=== PATIENT | female | born 1965 | race Caucasian/White ===

== ENCOUNTER 2017-07-07 10:11 | Emergency (ER) | payer MEDICAID ==
[~2017-07-07] VITALS: Ht 154.9 cm; Wt 84.4 kg
[~2017-07-07 10:11] MED LIST: COZ50 PO; FAMO-90 PO; METF850T PO; MIC5 PO; PRAV20TA2 PO; SAXA5TAB PO; SULF1TAB12 PO; [UNRECOGNIZED DRUG - CODE] TP; [UNRECOGNIZED DRUG - OTHER] INH
[2017-07-07 10:20] VITALS: BP 153/98
--- NOTE | 2017-07-07 10:24 | NUR ---
PT W/C ASSISTED TO BED 11.
--- NOTE | 2017-07-07 10:25 | NUR ---
52/F BIB DAUGHTER C/O right knee pain s/p trip and fall last night; pt states she fell on the sidewalk and now cannot walk with swelling to right knee.hx DM, HTN.DENIES LOC. SKIN IS PINK/WARM/DRY; AAOX4 WITH EVEN AND STEADY GAIT; LUNGS CLEAR. BLPATIENT STATES PAIN OF 10/10 AT THIS TIME. PATIENT POSITIONED FOR COMFORT; HOB ELEVATED; BEDRAILS UP X2; BED DOWN. ER MD MADE AWARE OF PT STATUS.
--- NOTE | 2017-07-07 10:49 | NUR ---
X RAY AT BEDSIDE.
--- NOTE | 2017-07-07 10:59 | NUR ---
Patient being evaluated by DR CARIAS at bedside.
--- NOTE | 2017-07-07 11:18 | NUR ---
Crutches dispensed. Taught by emt tamar proper use, patient returned demo.
[2017-07-07 11:22] VITALS: BP 158/90
--- NOTE | 2017-07-07 11:23 | NUR ---
Patient discharged with bp 158/90; denies scruggs at this time; md made aware. Written and verbal after care instructions given and explained. Patient alert, oriented and verbalized understanding of instructions. CRUTCHES Assisted with unsteady gait. All questions addressed prior to discharge. ID band removed. Patient advised to follow up with PMD. Rx of given. Patient educated on indication of medication including possible reaction and side effects. Opportunity to ask questions provided and answered.
== END 2017-07-07 11:23 | disposition home or self-care (01) ==
LOC: MED 10:11
DX: M25.561 Pain in right knee (principal); J45.909 Unspecified asthma, uncomplicated; E11.9 Type 2 diabetes mellitus without complications; I10 Essential (primary) hypertension; F17.210 Nicotine dependence, cigarettes, uncomplicated; Z88.6 Allergy status to analgesic agent; W01.0XXA Fall on same level from slipping, tripping and stumbling without subsequent striking against object, initial encounter; Y93.89 Activity, other specified; Y92.89 Other specified places as the place of occurrence of the external cause; Y99.8 Other external cause status
CPT/HCPCS: 29505; 73562; 99284

== ENCOUNTER 2018-09-02 21:04 | Emergency (ER) | payer MEDICAID ==
[~2018-09-02] VITALS: Ht 154.9 cm; Wt 83.5 kg
[2018-09-02 22:01] VITALS: BP 179/83
--- NOTE | 2018-09-02 22:09 | NUR ---
PT AMBULATED TO ROOM 2. PROVIDED URINE.
[2018-09-02] MEDS ORDERED: ASPI81EC98 PO (22:12)
[2018-09-02] MEDS ORDERED: CLON0.1T42 PO (22:13)
[2018-09-02] MEDS ORDERED: FURO-570 PO (22:13)
--- NOTE | 2018-09-02 22:25 | NUR ---
53/F PRESENTS TO ED WITH FAMILY, C/O 12/24 INTERMITTENT NONRADIATING UPPER ABD PAIN, X2 DAYS, EXACERBATED BY DRINKING COLD FLUIDS AND EATING FOOD. PT DENIES FEVER, CP, SOB, N/V/D, CONSTIPATION OR DYSURIA. AOX4, GCS 15, SKIN NORMAL WARM AND DRY, RR EVEN AND UNLABORED. BS ACTIVE X4, ABD SOFT ROUND TENDER TO UPPER QUADRANTS, DENIES LOWER QUADRANT TENDERNESS. HX DM, HTN, HLD
[2018-09-02 22:29] LABS: APPEARANCE,URINE CLEAR (CLEAR); BILIRUBIN,URINE NEGATIVE (NEGATIVE); BLOOD, URINE 1+ (NEGATIVE); COLOR,URINE YELLOW (YELLOW); LEUKOCYTE ESTERASE ,URINE NEGATIVE (NEGATIVE); NITRITE, URINE NEGATIVE (NEGATIVE); UGLUCOSE 3+ (NEGATIVE)
[2018-09-02 22:30] LABS: BASOPHILS # (AUTO) 0.1 K/uL (0.00-0.22); BASOPHILS % (AUTO) 0.7 % (0.0-2.0); EOSINOPHILS # (AUTO) 0.1 K/uL (0-0.4); EOSINOPHILS % (AUTO) 1.1 % (0.0-4.0); HEMATOCRIT 43.5 % (36-48); HEMOGLOBIN 14.7 g/dL (12.0-16.0); LYMPHOCYTES # (AUTO) 3.2 K/uL (2.5-16.5); LYMPHOCYTES % (AUTO) 33.8 % (20.5-51.1); MEAN CORPUSCULAR HEMOGLOBIN 30 pg (27-31); MEAN CORPUSCULAR HGB CONC 34 g/dL (33-37); MEAN CORPUSCULAR VOLUME 89.3 fL (80-94); MONOCYTES # (AUTO) 0.8 K/uL (0.8-1.0); NEUTROPHILS # (AUTO) 5.4 K/uL (1.8-7.7); NEUTROPHILS % (AUTO) 56.4 % (42.2-75.2); PLATELET COUNT (AUTO) 272 K/uL (140-450); RED BLOOD CELL COUNT(AUTO) 4.87 MIL/uL (4.20-5.40); RED CELL DISTRIBUTION WIDTH 14.4 % (11.6-13.7); WBC,URINE 0-5 /HPF (0-5); WHITE BLOOD COUNT (AUTO) 9.5 K/uL (4.8-10.8)
[2018-09-02 22:39] LABS: CARBON DIOXIDE 28.3 mmol/L (21-32); POTASSIUM 4.3 mmol/L (3.5-5.1)
[2018-09-02] MEDS ORDERED: PANTOPRAZOLE 40 MG INJ VIAL IVP ONE (22:40)
[2018-09-02] MEDS ORDERED: NACL 0.9% 1,000 ML IV ONE (22:40)
[2018-09-02 22:46] LABS: ALBUMIN 3.8 g/dL (3.4-5.0); TOTAL BILIRUBIN 0.4 mg/dL (0.0-1.0)
[2018-09-02] MEDS ORDERED: INSULIN REGULAR, HUMAN 100 UNIT/ML VIAL IVP ONE (23:20)
[2018-09-02] MEDS ORDERED: MORPHINE SULFATE 2 MG/ML SYR IVP ONE (23:20)
--- NOTE | 2018-09-03 00:21 | NUR ---
DR PAIGE MADE AWARE OF ACCUCHECK 283 AND VS, BP 169/95, HR 77, PT ASYMPTOMATIC AT THIS TIME. REPORTS RELIEF IN ABD PAIN. PER DR PAIGE, PT IS OK FOR DISCHARGE.
[2018-09-03 00:22] VITALS: BP 169/95
--- NOTE | 2018-09-03 00:22 | NUR ---
DPatient discharged with v/s stable. Written and verbal after care instructions given and explained. Patient alert, oriented and verbalized understanding of instructions. Ambulatory with steady gait. All questions addressed prior to discharge. ID band removed. Patient advised to follow up with PMD. Rx of PROTONIX, TRAMADOL given. Patient educated on indication of medication including possible reaction and side effects. Opportunity to ask questions provided and answered.
== END 2018-09-03 00:21 | disposition home or self-care (01) ==
LOC: MED 21:04
DX: K29.70 Gastritis, unspecified, without bleeding (principal); J45.909 Unspecified asthma, uncomplicated; E11.9 Type 2 diabetes mellitus without complications; I10 Essential (primary) hypertension; F17.210 Nicotine dependence, cigarettes, uncomplicated; Z71.6 Tobacco abuse counseling; Z79.84 Long term (current) use of oral hypoglycemic drugs; Z79.82 Long term (current) use of aspirin; Z79.899 Other long term (current) drug therapy; Z88.8 Allergy status to other drugs, medicaments and biological substances; Z88.1 Allergy status to other antibiotic agents
CPT/HCPCS: 36415; 80053; 81001; 82948; 83690; 85025; 87086; 93005; 96361; 96374; 96375; 99284; C9113; J1815; J7030

== ENCOUNTER 2019-02-08 15:43 | Emergency (ER) | payer MEDICAID ==
[~2019-02-08] VITALS: Ht 157.5 cm; Wt 75.3 kg
[~2019-02-08 15:43] MED LIST changes: +ASPI81EC98 PO; +CLON0.1T42 PO; -COZ50 PO; +FURO-570 PO; +LOSA50TA57 PO; -SAXA5TAB PO; -SULF1TAB12 PO; -[UNRECOGNIZED DRUG - CODE] TP
[2019-02-08 15:55] VITALS: BP 122/72
--- NOTE | 2019-02-08 16:17 | NUR ---
PT TAKEN TO BED 3.
--- NOTE | 2019-02-08 16:30 | NUR ---
PT. WENT TO X-RAY
--- NOTE | 2019-02-08 16:40 | NUR ---
53/F BIBS. CAME IN COMPLAINING OF LEFT KNEE PAIN. SHE STATED SHE FELL AT HOME ON 02/08/2019 AT 0900. AOX4, PAIN IS 7/10, NON RADIATING, SHE STATES "KNEE FEELS HEAVY, AND TENDER WHEN I TOUCH IT". CAP REFILL IS <3 SECS, NO DEFORMITY, ABLE TO EXTEND AND FLEX LEG, NO BRUISING NOTED, SWELLING IS PRESENT, PEDAL PULSES +2. GRANDSON IS AT BEDSIDE PMHX: ASTHMA, DIABETES, HTN RX: METFOMIN, INSULIN, GLYBURIDE
[2019-02-08 17:38] VITALS: BP 120/74
--- NOTE | 2019-02-08 17:41 | NUR ---
Patient discharged with v/s stable. Written and verbal after care instructions given and explained. Patient alert, oriented and verbalized understanding of instructions. Ambulatory with crutches with steady gait. All questions addressed prior to discharge. ID band removed. Patient advised to follow up with PMD. Rx of TYLENOL given. Patient educated on indication of medication including possible reaction and side effects. Opportunity to ask questions provided and answered.
== END 2019-02-08 17:41 | disposition home or self-care (01) ==
LOC: MED 15:43
DX: S80.02XA Contusion of left knee, initial encounter (principal); J45.909 Unspecified asthma, uncomplicated; E11.9 Type 2 diabetes mellitus without complications; I10 Essential (primary) hypertension; Z79.84 Long term (current) use of oral hypoglycemic drugs; Z79.82 Long term (current) use of aspirin; Z79.899 Other long term (current) drug therapy; Z88.8 Allergy status to other drugs, medicaments and biological substances; Z88.1 Allergy status to other antibiotic agents; W01.0XXA Fall on same level from slipping, tripping and stumbling without subsequent striking against object, initial encounter; Y93.01 Activity, walking, marching and hiking; Y92.098 Other place in other non-institutional residence as the place of occurrence of the external cause; Y99.8 Other external cause status
CPT/HCPCS: 29505; 73560; 99283

== ENCOUNTER 2019-07-22 17:48 | Emergency (ER) | payer MEDICAID ==
[~2019-07-22] VITALS: Ht 162.6 cm; Wt 69.9 kg
[2019-07-22 17:52] VITALS: BP 140/83
[2019-07-22] MEDS ORDERED: NACL 0.9% 1,000 ML IV ONE ×2 (18:05→19:30)
[2019-07-22 18:28] LABS: BASOPHILS # (AUTO) 0.1 K/uL (0.00-0.22); BASOPHILS % (AUTO) 0.8 % (0.0-2.0); EOSINOPHILS # (AUTO) 0.1 K/uL (0-0.4); EOSINOPHILS % (AUTO) 1.5 % (0.0-4.0); HEMATOCRIT 44.7 % (36-48); HEMOGLOBIN 15.1 g/dL (12.0-16.0); LYMPHOCYTES # (AUTO) 2.8 K/uL (2.5-16.5); LYMPHOCYTES % (AUTO) 37.8 % (20.5-51.1); MEAN CORPUSCULAR HEMOGLOBIN 31 pg (27-31); MEAN CORPUSCULAR HGB CONC 34 g/dL (33-37); MEAN CORPUSCULAR VOLUME 90.7 fL (80-94); MONOCYTES # (AUTO) 0.6 K/uL (0.8-1.0); MONOCYTES % (AUTO) 7.8 % (1.7-9.3); NEUTROPHILS # (AUTO) 3.9 K/uL (1.8-7.7); NEUTROPHILS % (AUTO) 52.1 % (42.2-75.2); PLATELET COUNT (AUTO) 242 K/uL (140-450); RED BLOOD CELL COUNT(AUTO) 4.93 MIL/uL (4.20-5.40); RED CELL DISTRIBUTION WIDTH 13.6 % (11.6-13.7); WHITE BLOOD COUNT (AUTO) 7.5 K/uL (4.8-10.8)
[2019-07-22 18:40] LABS: APPEARANCE,URINE HAZY (CLEAR); BILIRUBIN,URINE NEGATIVE (NEGATIVE); BLOOD, URINE NEGATIVE (NEGATIVE); COLOR,URINE YELLOW (YELLOW); LEUKOCYTE ESTERASE ,URINE TRACE (NEGATIVE); NITRITE, URINE NEGATIVE (NEGATIVE); PH,URINE 5.5 (5.0-9.0); UGLUCOSE 3+ (NEGATIVE)
[2019-07-22 18:43] LABS: ACETONE, SERUM NEGATIVE (NEGATIVE)
[2019-07-22 18:48] LABS: ALBUMIN 3.8 g/dL (3.4-5.0); ASPARTATE AMINOTRANSFERASE 11 U/L (15-37); CARBON DIOXIDE 25.3 mmol/L (21-32); CHLORIDE 94 mmol/L (98-107); CREATININE 1.7 mg/dL (0.6-1.3); GFR ARICAN-AMERICAN 40 mL/min (>90); POTASSIUM 4.3 mmol/L (3.5-5.1); SODIUM SERUM 130 mmol/L (136-145); TOTAL BILIRUBIN 0.4 mg/dL (0.0-1.0); UREA NITROGEN, BLOOD 21 mg/dL (7-18)
[2019-07-22 18:53] LABS: GLUCOSE 499 mg/dL (74-106)
[2019-07-22 18:58] LABS: RBC,URINE NONE SEEN /HPF (0-5)
[2019-07-22] MEDS ORDERED: INSULIN REGULAR, HUMAN 100 UNIT/ML VIAL IV ONE (19:30)
[2019-07-22 20:52] VITALS: BP 136/82
== END 2019-07-22 20:53 | disposition home or self-care (01) ==
LOC: MED 17:48
DX: N39.0 Urinary tract infection, site not specified (principal); E11.65 Type 2 diabetes mellitus with hyperglycemia; J45.909 Unspecified asthma, uncomplicated; I10 Essential (primary) hypertension; Z79.84 Long term (current) use of oral hypoglycemic drugs; Z79.82 Long term (current) use of aspirin; Z79.899 Other long term (current) drug therapy; Z88.1 Allergy status to other antibiotic agents; Z88.8 Allergy status to other drugs, medicaments and biological substances
CPT/HCPCS: 36415; 71045; 80053; 81001; 82009; 82803; 82948; 85025; 87086; 96361; 96374; 99284; J1815; J7030

== ENCOUNTER 2019-08-01 21:39 | Emergency (ER) | payer MEDICAID ==
[~2019-08-01] VITALS: Ht 157.5 cm; Wt 69.9 kg
[2019-08-01 21:49] VITALS: BP 107/67
--- NOTE | 2019-08-01 21:56 | NUR ---
PT AMBULATED TO ER BED 07
[2019-08-01] MEDS ORDERED: FAMOTIDINE 20 MG/2 ML VIAL IVP ONE (22:00)
[2019-08-01] MEDS ORDERED: ONDANSETRON 4 MG/2 ML VIAL IVP ONE (22:00)
[2019-08-01] MEDS ORDERED: NACL 0.9% 2,000 ML IV ONE (22:00)
--- NOTE | 2019-08-01 22:00 | NUR ---
54 YEAR OLD FEMALE COMPLAINS OF HIGH BLOOD SUGAR FOR THE PAST WEEK. THE PATIENT STATES THAT SHE HAS BEEN TAKING ANTIBIOTICS UNTIL SUNDAY AND HAS BEEN UNABLE TO EAT FOOD BECAUSE OF ABDOMINAL DISCOMFORT. PATIENT AOX4, BREATHING EVEN AND UNLABORED, SKIN WARM AND DRY. BED IN LOWEST POSITION, LOCKED, BED RAIL UPX1. PMH - DM2, HTN, HYPERLIPIDEMIA ALLERGIES - IBUPROFEN, LEVOFLOXACIN
--- NOTE | 2019-08-01 22:05 | NUR ---
BLOOD SUGAR 400, ERMD MADE AWARE
[2019-08-01 22:22] LABS: BASOPHILS # (AUTO) 0.1 K/uL (0.00-0.22); BASOPHILS % (AUTO) 0.7 % (0.0-2.0); EOSINOPHILS # (AUTO) 0.2 K/uL (0-0.4); EOSINOPHILS % (AUTO) 2.3 % (0.0-4.0); HEMATOCRIT 39.1 % (36-48); HEMOGLOBIN 13.1 g/dL (12.0-16.0); LYMPHOCYTES # (AUTO) 3.2 K/uL (2.5-16.5); LYMPHOCYTES % (AUTO) 37.5 % (20.5-51.1); MEAN CORPUSCULAR HEMOGLOBIN 31 pg (27-31); MEAN CORPUSCULAR HGB CONC 34 g/dL (33-37); MEAN CORPUSCULAR VOLUME 90.9 fL (80-94); MONOCYTES # (AUTO) 0.5 K/uL (0.8-1.0); NEUTROPHILS # (AUTO) 4.5 K/uL (1.8-7.7); NEUTROPHILS % (AUTO) 53.5 % (42.2-75.2); PLATELET COUNT (AUTO) 228 K/uL (140-450); RED CELL DISTRIBUTION WIDTH 13.4 % (11.6-13.7); WHITE BLOOD COUNT (AUTO) 8.5 K/uL (4.8-10.8)
[2019-08-01 22:31] LABS: APPEARANCE,URINE CLEAR (CLEAR); BILIRUBIN,URINE 1+ (NEGATIVE); BLOOD, URINE TRACE-I (NEGATIVE); COLOR,URINE YELLOW (YELLOW); LEUKOCYTE ESTERASE ,URINE 2+ (NEGATIVE); NITRITE, URINE NEGATIVE (NEGATIVE); UGLUCOSE 3+ (NEGATIVE)
[2019-08-01 22:47] LABS: ALBUMIN 3.3 g/dL (3.4-5.0); CARBON DIOXIDE 27.4 mmol/L (21-32); CREATININE 1.6 mg/dL (0.6-1.3); POTASSIUM 3.4 mmol/L (3.5-5.1); TOTAL BILIRUBIN 0.2 mg/dL (0.0-1.0)
[2019-08-01 22:48] LABS: WBC,URINE 60-80 /HPF (0-5)
[2019-08-01 22:50] LABS: TRICHOMONAS,URINE Moderate /HPF (None Seen)
--- NOTE | 2019-08-01 22:59 | NUR ---
LAB CALLED FOR PT CRITICAL RESULT OF [id number]. ERMD DR MONTANO MADE AWARE. PT GIVEN EXTRA BLANKET FOR COMFORT.
--- NOTE | 2019-08-01 23:00 | NUR ---
PATIENT RESTING WITH EYES CLOSED, BREATHING EVEN AND UNLABORED
[2019-08-01] MEDS ORDERED: INSULIN REGULAR, HUMAN 100 UNIT/ML VIAL SUBQ ONE (23:15)
--- NOTE | 2019-08-02 | NUR ---
PATIENT RESTING WITH EYES CLOSED, BREATHING EVEN AND UNLABORED
[2019-08-02 01:15] VITALS: BP 116/64
--- NOTE | 2019-08-02 01:15 | NUR ---
Patient discharged with v/s stable. Written and verbal after care instructions about hyperglycemia and urinary tract infection given and explained. Patient alert, oriented and verbalized understanding of instructions. Ambulatory with steady gait. All questions addressed prior to discharge. ID band removed. Patient advised to follow up with PMD. Rx of Keflex given. Patient educated on indication of medication including possible reaction and side effects. Opportunity to ask questions provided and answered.
== END 2019-08-02 01:15 | disposition home or self-care (01) ==
LOC: MED 21:39
DX: N39.0 Urinary tract infection, site not specified (principal); R73.9 Hyperglycemia, unspecified; R10.13 Epigastric pain; J45.909 Unspecified asthma, uncomplicated; E11.9 Type 2 diabetes mellitus without complications; I10 Essential (primary) hypertension; Z88.6 Allergy status to analgesic agent; Z88.2 Allergy status to sulfonamides; Z79.899 Other long term (current) drug therapy
CPT/HCPCS: 36415; 80053; 81001; 83690; 85025; 87086; 96361; 96372; 96374; 96375; 99284; J1815; J2405; J3490; J7030

== ENCOUNTER 2019-11-07 19:49 | Emergency (ER) | payer MEDICAID ==
[~2019-11-07] VITALS: Ht 157.5 cm; Wt 78.9 kg
[2019-11-07 20:11] VITALS: BP 119/75
[2019-11-07 20:34] VITALS: BP 119/75
== END 2019-11-07 20:34 | disposition home or self-care (01) ==
LOC: MED 19:49
DX: E11.9 Type 2 diabetes mellitus without complications (principal); J45.909 Unspecified asthma, uncomplicated; I10 Essential (primary) hypertension; F17.210 Nicotine dependence, cigarettes, uncomplicated; Z88.6 Allergy status to analgesic agent; Z88.1 Allergy status to other antibiotic agents; Z79.899 Other long term (current) drug therapy; Z79.84 Long term (current) use of oral hypoglycemic drugs
CPT/HCPCS: 99281; 99282

== ENCOUNTER 2022-07-03 08:01 | Inpatient (IN) | payer MEDICAID ==
[~2022-07-03] VITALS: Ht 157.5 cm; Wt 59.0 kg
[~2022-07-03 08:01] MED LIST changes: +CLON0.1T16 PO; -CLON0.1T42 PO; +GLYB-200 PO; +METF-713 PO; -METF850T PO; -MIC5 PO
[2022-07-03 08:12] VITALS: BP 146/79
--- NOTE | 2022-07-03 08:14 | NUR ---
PT AMBULATED TO ER BED 5
[2022-07-03] MEDS ORDERED: NACL 0.9% 1,000 ML IV ONE (08:30)
--- NOTE | 2022-07-03 09:00 | NUR ---
AWAKE, ALERT X 4, AMBULATORY, VERY CONVERSANT ON PHONE, PLEASANT TO STAFF. C/O GENERALIZED WEAKNESS, DENIES ANY GI SYMPTOMS.
[2022-07-03 09:25] LABS: APPEARANCE,URINE CLEAR (CLEAR); BILIRUBIN,URINE NEGATIVE (NEGATIVE); BLOOD, URINE TRACE-I (NEGATIVE); COLOR,URINE YELLOW (YELLOW); LEUKOCYTE ESTERASE ,URINE 1+ (NEGATIVE); NITRITE, URINE NEGATIVE (NEGATIVE); UGLUCOSE 3+ (NEGATIVE)
[2022-07-03 09:29] LABS: BASOPHILS % (AUTO) 0.5 % (0.0-2.0); EOSINOPHILS % (AUTO) 0.1 % (0.0-4.0); HEMATOCRIT 38.3 % (36-48); HEMOGLOBIN 12.7 g/dL (12.0-16.0); LYMPHOCYTES # (AUTO) 1.9 K/uL (2.5-16.5); LYMPHOCYTES % (AUTO) 18.7 % (20.5-51.1); MEAN CORPUSCULAR HEMOGLOBIN 29 pg (27-31); MEAN CORPUSCULAR HGB CONC 33 g/dL (33-37); MEAN CORPUSCULAR VOLUME 88.3 fL (80-94); MONOCYTES # (AUTO) 0.6 K/uL (0.8-1.0); MONOCYTES % (AUTO) 6.1 % (1.7-9.3); NEUTROPHILS # (AUTO) 7.6 K/uL (1.8-7.7); NEUTROPHILS % (AUTO) 74.6 % (42.2-75.2); PLATELET COUNT (AUTO) 354 K/uL (140-450); RED BLOOD CELL COUNT(AUTO) 4.34 MIL/uL (4.20-5.40); RED CELL DISTRIBUTION WIDTH 15.2 % (11.6-13.7); WHITE BLOOD COUNT (AUTO) 10.2 K/uL (4.8-10.8)
[2022-07-03] MEDS: NACL 0.9% 1,000 ML IV SCH ×2 (09:37→10:49)
[2022-07-03 09:40] LABS: ACETONE, SERUM NEGATIVE (NEGATIVE)
[2022-07-03] MEDS ORDERED: NYSTATIN 500 MU/5 ML UDC PO SCH (09:40)
[2022-07-03 09:51] LABS: ALBUMIN 3.8 g/dL (3.4-5.0); ANION GAP 18.7 (8-16); ASPARTATE AMINOTRANSFERASE 8 U/L (15-37); CARBON DIOXIDE 21.4 mmol/L (21-32); CHLORIDE 95 mmol/L (98-107); CREATININE 1.7 mg/dL (0.6-1.3); GFR ARICAN-AMERICAN 40 mL/min (>90); POTASSIUM 5.1 mmol/L (3.5-5.1); SODIUM SERUM 130 mmol/L (136-145); TOTAL BILIRUBIN 0.4 mg/dL (0.0-1.0); UREA NITROGEN, BLOOD 21 mg/dL (7-18)
[2022-07-03 09:52] LABS: GLUCOSE 659 mg/dL (74-106)
[2022-07-03] MEDS ORDERED: BLOOD GLUCOSE MONITORING 1 DEV DEV FS SCH (10:40)
[2022-07-03] MEDS ORDERED: INSULIN REGULAR, HUMAN 100 UNIT in NACL 0.9% 100 ML IV PRN ×2 (10:40)
[2022-07-03] MEDS ORDERED: INSULIN REGULAR, HUMAN 100 UNIT/ML VIAL IVP ONE (10:40)
[2022-07-03] MEDS ORDERED: DEXTROSE 50% 50 ML SYR IVP PRN ×3 (10:40→20:25)
[2022-07-03] MEDS ORDERED: INSULIN REGULAR, HUMAN 100 UNIT/ML VIAL IV ONE (10:45)
--- NOTE | 2022-07-03 11:00 | NUR ---
AWARE OF ADMISSION STATUS TO THE HOSPITAL. AMBULATES TO BR FREQUENTLY, DENIES DYSURIA. UNDERSTNADS NPO STATUS
[2022-07-03] MEDS ORDERED: cefTRIAXone 1,000 MG VIAL ONE (11:04)
[2022-07-03] MEDS ORDERED: MORPHINE SULFATE 2 MG/ML SYR IVP PRN (11:35)
[2022-07-03] MEDS ORDERED: ONDANSETRON 4 MG/2 ML VIAL IVP PRN (11:35)
[2022-07-03] MEDS ORDERED: INSULIN REGULAR, HUMAN 100 UNIT in NACL 0.9% 100 ML IV SCH ×4 (11:35→20:25)
[2022-07-03] MEDS ORDERED: ACETAMINOPHEN 325 MG TAB PO PRN (11:35)
[2022-07-03] MEDS ORDERED: ZOLPIDEM 10 MG TAB PO PRN (11:35)
[2022-07-03] MEDS ORDERED: POTASSIUM CHLORIDE 10 MEQ TABER PO PRN (11:35)
[2022-07-03] MEDS ORDERED: MAG SULF 2000 MG/WATER PREMIX 50 ML IV PRN (11:35)
[2022-07-03] MEDS ORDERED: LORazepam 2 MG/ML VIAL IVP PRN (11:35)
[2022-07-03] MEDS ORDERED: DOCUSATE SODIUM 100 MG GELCAP PO PRN (11:35)
[2022-07-03] MEDS ORDERED: OMEP40EC23 PO (11:38)
[2022-07-03] MEDS ORDERED: INSU100V3 SQ (11:38)
[2022-07-03] MEDS ORDERED: SITA100T8 PO (11:38)
[2022-07-03] MEDS ORDERED: DILT240C11 PO (11:38)
[2022-07-03] MEDS: BLOOD GLUCOSE MONITORING 1 DEV DEV FS SCH ×9 (12:11→23:45)
[2022-07-03 12:37] LABS: ANION GAP 14.5 (8-16); CARBON DIOXIDE 22.7 mmol/L (21-32); CREATININE 1.3 mg/dL (0.6-1.3); POTASSIUM 4.2 mmol/L (3.5-5.1)
--- NOTE | 2022-07-03 15:37 | NUR ---
VISITED BY MD RESIDENTS AT BEDSIDE, WAS TOLD WILL GET A DIET ORDER, PT HUNGRY AND THIRSTY. ICE CHIPS OK PER
[2022-07-03 16:19] LABS: ANION GAP 13.3 (8-16); CARBON DIOXIDE 22.4 mmol/L (21-32); CREATININE 1.2 mg/dL (0.6-1.3); POTASSIUM 3.7 mmol/L (3.5-5.1)
--- NOTE | 2022-07-03 17:40 | NUR ---
SPOKE WTIH DR PRICE PER PHONE, OK TO FEED PT WHILE ON INSULIN DRIP
--- NOTE | 2022-07-03 19:00 | NUR ---
ATE PER MEAL TRAY PROVIDED, TOLERATED 100%, DENIES ANY NAUSEA OR PAIN. AMBULATES TO TO VOID URINE, EATING ICE CHIPS
--- NOTE | 2022-07-03 19:00 | NUR ---
PPatient will be admitted to care of DKA. Admited to ICU. Will go to room 5. Belongings list completed. Report to KRISSY .
--- NOTE | 2022-07-03 19:24 | NUR ---
RICHARD TO JORGE BELL SHIFT
[2022-07-03] MEDS ORDERED: NACL 0.9% 1,000 ML IV SCH (20:25)
[2022-07-03] MEDS ORDERED: INSULIN LISPRO SLIDING SCALE 100 UNITS/ML VIAL SUBQ PRN (20:25)
[2022-07-03 20:36] LABS: ANION GAP 9.4 (8-16); CARBON DIOXIDE 25.9 mmol/L (21-32); CREATININE 1.2 mg/dL (0.6-1.3); POTASSIUM 4.3 mmol/L (3.5-5.1)
[2022-07-03 20:45] VITALS: BP 126/63
[2022-07-03] MEDS: DEXT 5% / NACL 0.45% 1,000 ML IV SCH ×3 (20:59→22:03)
--- NOTE | 2022-07-03 21:00 | NUR ---
ADMITTING PT FROM ER VIA RUBINA - Tien, DENIES PAIN/DISCOMFORT AT THIS TIME. INSULIN DRIP GOING ON AT 3.5 UNITS/HR. aSSISTED TO BED - GAIT SLOW, STEADY. ORIENTED TO THE UNIT. ASSESSMENT DONE. NEEDS ATTENDED. MADE WARM AND COMFORTABLE. CALL LIGHT WITHIN REACH. AFEBRILE. SR. CONT TO MONITOR.
[2022-07-03 22:00] VITALS: BP 126/63
[2022-07-04] VITALS (9 sets, daily range): BP systolic 132–163; BP diastolic 69–90
--- NOTE | 2022-07-04 00:03 | NUR ---
REPORTED TO DR. PRICE LATEST BLOOD SUGAR 77. NEW ORDER GIVEN, NOTED AND CARRIED OUT. IVF AND INSULIN DRIP D/C'D ORDERED. CONT TO MONITOR.
[2022-07-04 04:36] LABS: ANION GAP 18.1 (8-16); CARBON DIOXIDE 18.1 mmol/L (21-32); CREATININE 0.9 mg/dL (0.6-1.3); POTASSIUM 4.2 mmol/L (3.5-5.1)
[2022-07-04 04:43] LABS: BASOPHILS % (AUTO) 0.5 % (0.0-2.0); EOSINOPHILS # (AUTO) 0.1 K/uL (0-0.4); EOSINOPHILS % (AUTO) 0.8 % (0.0-4.0); HEMATOCRIT 32.9 % (36-48); HEMOGLOBIN 11.1 g/dL (12.0-16.0); LYMPHOCYTES # (AUTO) 3.2 K/uL (2.5-16.5); MEAN CORPUSCULAR HEMOGLOBIN 29 pg (27-31); MEAN CORPUSCULAR HGB CONC 34 g/dL (33-37); MEAN CORPUSCULAR VOLUME 87.3 fL (80-94); MONOCYTES # (AUTO) 0.7 K/uL (0.8-1.0); MONOCYTES % (AUTO) 8.4 % (1.7-9.3); NEUTROPHILS # (AUTO) 4.6 K/uL (1.8-7.7); NEUTROPHILS % (AUTO) 53.3 % (42.2-75.2); PLATELET COUNT (AUTO) 295 K/uL (140-450); RED BLOOD CELL COUNT(AUTO) 3.77 MIL/uL (4.20-5.40); RED CELL DISTRIBUTION WIDTH 15.1 % (11.6-13.7); WHITE BLOOD COUNT (AUTO) 8.6 K/uL (4.8-10.8)
[2022-07-04] MEDS: BLOOD GLUCOSE MONITORING 1 DEV DEV FS SCH ×3 (05:35→12:07)
[2022-07-04] MEDS: INSULIN LISPRO SLIDING SCALE 100 UNITS/ML VIAL SUBQ PRN ×3 (05:35→12:03)
--- NOTE | 2022-07-04 07:25 | NUR ---
Received patient from PENELOPE Pastor. Patient resting in bed watching TV at this time. Patient is GCS 15, denies pain. Puppils PERRLA 3mm. Moves all extremities without difficulty. Denies pain. Speaks clearly and makes needs known. Appears NSR on monitor. Pulses +2 BUE/BLE. S1 and S2 auscultated. IV site to left AC leaking at insertion site with flushing. Lungs clear bilaterally with auscultation. No complaints of SOB or increased WOB, breaths are even and WNL. Saturating at 1005 on RA. Bowel sounds active all 4 quadrants. No BM yesterday per patient. Passing gas. Requesting bed wu at this time. Denies pain, burning, or frequency with urination. Utilized bedpan, clear yellow urine noted with no odor. Skin is intact. Patient denies pain, itching, or burning of mouth. Bed in lowest position, call light in place, fall precautions in place. Will continue to monitor.
--- NOTE | 2022-07-04 07:30 | NUR ---
SBAR REPORT GIVEN TO AM INCOMING RN JEAN-PIERRE. NO SIGNIFICANT CHANGE NOTED DURING SHIFT.
--- NOTE | 2022-07-04 07:47 | NUR ---
Dr. Lin here to see patient. New orders given for IVF, lantus, lisinopril and discharge. Orders noted and carried out.
--- NOTE | 2022-07-04 07:59 | NUR ---
here to see patient. and Riley collaborating on d/c POC. No new orders from at this time.
[2022-07-04] MEDS ORDERED: NACL 0.9% 1,000 ML IV ONE (09:00)
[2022-07-04] MEDS ORDERED: INSULIN LANTUS 100 UNITS/ML 10 ML VIAL SUBQ SCH (09:00)
[2022-07-04] MEDS ORDERED: lisinopriL 5 MG TAB PO SCH (09:00)
[2022-07-04] MEDS ORDERED: NITR100C7 PO (10:17)
--- NOTE | 2022-07-04 10:21 | NUR ---
PATIENT HAS BEEN SCREENED AND CATEGORIZED HIGH NUTRITION RISK. PATIENT WILL BE SEEN WITHIN 1-2 DAYS OF ADMISSION. [facility] CONSULT RECEIVED FOR "UNINTENTIONAL WEIGHT LOSS" AND [facility] REFERRAL RECEIVED FOR "UNCONTROLLED DIABETES" ON 07/04/22. REVIEWED BY AFSANEH TINOCO RD
--- NOTE | 2022-07-04 15:30 | NUR ---
DISCHARGE TEACHING PROVIDED. ,DISCHARGE PACKET PROVIDED. ALL QUESTIONS ANSWERED AT THIS TIME. PATIENT IS A/OX4 AND ABLE TO MAKE NEEDS KNOWN. PATIENT VERBALIZES UNDERSTANDING OF ALL TEACHINGS. PATIENT UNDERSTANDS THAT SHE IS TO SEE PCP FOR POST D/C CARE. PATIENT VS STABLE AND DENIES PAIN OR SOB. PATIENT D/C HOME IN PRIVATE VEHICLE WITH DAUGHTER AND SISTER. PATIENT WHEELED TO CAR IN W/C. ABLE TO TRANSFER SELF INTO CAR WITHOUT ISSUE.
--- NOTE | 2022-07-04 16:36 | NUR ---
07/04/22 RD INITIAL ASSESSMENT COMPLETED PLEASE REFER TO NUTRITION ASSESSMENT UNDER CARE ACTIVITY FOR ESTIMATED NUTRITIONAL NEEDS. [facility] TOL[facility] 2. PROVIDED NUTRITION EDUCATION AND HANDOUTS FOR DM 3. RD TO FOLLOW-UP 7 DAYS, LOW RISK REVIEWED BY AFSANEH TINOCO RD
== END 2022-07-04 15:30 | disposition home or self-care (01) | DRG 720 ==
LOC: MED 08:01 → MIC 11:31 → MTU 11:32 → MIC 18:02
PROVIDERS: ADMIT Family Medicine; ATTEND Family Medicine
DX: A41.9 Sepsis, unspecified organism (principal); N17.0 Acute kidney failure with tubular necrosis; E11.10 Type 2 diabetes mellitus with ketoacidosis without coma; E87.8 Other disorders of electrolyte and fluid balance, not elsewhere classified; E87.1 Hypo-osmolality and hyponatremia; N39.0 Urinary tract infection, site not specified; D64.9 Anemia, unspecified; Z20.822 Contact with and (suspected) exposure to COVID-19; Z88.6 Allergy status to analgesic agent
CPT/HCPCS: 36415; 71045; 80048; 80053; 81001; 82009; 82550; 82553; 82948; 83605; 83735; 84484; 85025; 87040; 87081; 87086; 96361; 96365; 96375; 99291; J0696; J1815; J3475; J7060

== ENCOUNTER 2022-09-23 20:37 | Emergency (ER) | payer MEDICAID ==
[~2022-09-23] VITALS: Ht 157.5 cm; Wt 54.9 kg
[~2022-09-23 20:37] MED LIST changes: +DILT240C11 PO; +INSU100V3 SQ; +NITR100C7 PO; +OMEP40EC23 PO; +SITA100T8 PO
[2022-09-23 20:49] VITALS: BP 127/85
--- NOTE | 2022-09-23 21:05 | NUR ---
PT. WALKED TO BED 03.
--- NOTE | 2022-09-23 21:08 | NUR ---
CBG 315 AT TRIAGE
--- NOTE | 2022-09-23 21:10 | NUR ---
PT TO ED WITH C/O NAUSEA AND VOMITING X2.5 DAYS. PT STATES CONTINUOUS N/V DENIES ABDOMINAL PAIN, FEVER, OR CHILLS. PMHX DM AND HTN. NO MEDS TAKEN DIRECTOR OF CLINICAL TRIALS. PT IS AAOx4, NAD, VSS, BREATHING EVEN AND UNLABORED.
--- NOTE | 2022-09-23 21:18 | NUR ---
PT AMBULATES TO RESTROOM WITH STEADY GAIT.
[2022-09-23] MEDS ORDERED: NACL 0.9% 1,000 ML IV SCH (21:20)
[2022-09-23] MEDS ORDERED: ONDANSETRON 4 MG/2 ML VIAL IVP ONE (21:20)
--- NOTE | 2022-09-23 21:26 | NUR ---
DR. BERRY AT BEDSIDE.
--- NOTE | 2022-09-23 21:26 | NUR ---
Patient being evaluated by DR. BERRY at bedside.
[2022-09-23 21:50] LABS: BASOPHILS # (AUTO) 0.1 K/uL (0.00-0.22); HEMATOCRIT 40.1 % (36-48); HEMOGLOBIN 13.3 g/dL (12.0-16.0); LYMPHOCYTES # (AUTO) 3.2 K/uL (2.5-16.5); MEAN CORPUSCULAR HEMOGLOBIN 29 pg (27-31); MEAN CORPUSCULAR HGB CONC 33 g/dL (33-37); MEAN CORPUSCULAR VOLUME 86.9 fL (80-94); MONOCYTES # (AUTO) 0.6 K/uL (0.8-1.0); MONOCYTES % (AUTO) 6.1 % (1.7-9.3); NEUTROPHILS # (AUTO) 6.6 K/uL (1.8-7.7); NEUTROPHILS % (AUTO) 62.9 % (42.2-75.2); PLATELET COUNT (AUTO) 423 K/uL (140-450); RED BLOOD CELL COUNT(AUTO) 4.62 MIL/uL (4.20-5.40); RED CELL DISTRIBUTION WIDTH 15.2 % (11.6-13.7); WHITE BLOOD COUNT (AUTO) 10.6 K/uL (4.8-10.8)
[2022-09-23 21:53] LABS: APPEARANCE,URINE CLEAR (CLEAR); BILIRUBIN,URINE 1+ (NEGATIVE); BLOOD, URINE 1+ (NEGATIVE); COLOR,URINE YELLOW (YELLOW); LEUKOCYTE ESTERASE ,URINE 2+ (NEGATIVE); NITRITE, URINE NEGATIVE (NEGATIVE); PH,URINE 5.5 (5.0-9.0); UGLUCOSE NEGATIVE (NEGATIVE)
[2022-09-23 22:03] LABS: RBC,URINE 0-5 /HPF (0-5)
[2022-09-23 22:13] LABS: ALBUMIN 4.5 g/dL (3.4-5.0); ANION GAP 21.7 (8-16); CARBON DIOXIDE 24.3 mmol/L (21-32); CREATININE 1.5 mg/dL (0.6-1.3); TOTAL BILIRUBIN 0.5 mg/dL (0.0-1.0)
[2022-09-23] MEDS ORDERED: ONDA-188 SL (23:14)
[2022-09-23] MEDS ORDERED: CEPH-588 PO (23:14)
[2022-09-23 23:39] VITALS: BP 121/83
--- NOTE | 2022-09-23 23:40 | NUR ---
Patient discharged with v/s stable. Written and verbal after care instructions given and explained. Patient alert, oriented and verbalized understanding of instructions. Ambulatory with steady gait to home. All questions addressed prior to discharge. ID band removed. Patient advised to follow up with PMD. Rx of cephalexin and Zofran given. Patient educated on indication of medication including possible reaction and side effects. Opportunity to ask questions provided and answered.
== END 2022-09-23 23:25 | disposition home or self-care (01) ==
LOC: MED 20:37
DX: R11.2 Nausea with vomiting, unspecified (principal); N39.0 Urinary tract infection, site not specified; E11.9 Type 2 diabetes mellitus without complications; I10 Essential (primary) hypertension; F17.200 Nicotine dependence, unspecified, uncomplicated; F12.90 Cannabis use, unspecified, uncomplicated; Z88.6 Allergy status to analgesic agent; Z88.1 Allergy status to other antibiotic agents; Z79.899 Other long term (current) drug therapy; Z98.890 Other specified postprocedural states
CPT/HCPCS: 36415; 80053; 81001; 82803; 83690; 85025; 87086; 96361; 96374; 99283; J2405; J7030

== ENCOUNTER 2024-02-09 06:01 | Emergency (ER) | payer MEDICAID ==
[~2024-02-09] VITALS: Ht 157.5 cm; Wt 63.5 kg
[~2024-02-09 06:01] MED LIST changes: +CEPH-588 PO; +ONDA-188 SL
[2024-02-09 06:22] VITALS: BP 148/90; PULSE 116; RESP 18; TEMP 98.3; O2SAT 100
[2024-02-09] MEDS: ONDANSETRON 4 MG/2 ML VIAL IVP ONE (07:48)
[2024-02-09] MEDS: NACL 0.9% 1,000 ML IV ONE (07:49)
[2024-02-09 08:03] LABS: BASOPHILS % (AUTO) 0.8 % (0.0-2.0); EOSINOPHILS % (AUTO) 0.7 % (0.0-4.0); HEMATOCRIT 44.3 % (36-48); HEMOGLOBIN 14.7 g/dL (12.0-16.0); LYMPHOCYTES # (AUTO) 2.4 K/uL (2.5-16.5); LYMPHOCYTES % (AUTO) 38.8 % (20.5-51.1); MEAN CORPUSCULAR HEMOGLOBIN 30 pg (27-31); MEAN CORPUSCULAR HGB CONC 33 g/dL (33-37); MEAN CORPUSCULAR VOLUME 90.8 fL (80-94); MONOCYTES # (AUTO) 0.4 K/uL (0.8-1.0); NEUTROPHILS # (AUTO) 3.3 K/uL (1.8-7.7); NEUTROPHILS % (AUTO) 52.7 % (42.2-75.2); PLATELET COUNT (AUTO) 266 K/uL (140-450); RED BLOOD CELL COUNT(AUTO) 4.88 MIL/uL (4.20-5.40); RED CELL DISTRIBUTION WIDTH 14.1 % (11.6-13.7); WHITE BLOOD COUNT (AUTO) 6.3 K/uL (4.8-10.8)
[2024-02-09 08:11] LABS: BILIRUBIN,URINE NEGATIVE (NEGATIVE); BLOOD, URINE 1+ (NEGATIVE); COLOR,URINE YELLOW (YELLOW); LEUKOCYTE ESTERASE ,URINE 1+ (NEGATIVE); NITRITE, URINE POSITIVE (NEGATIVE); PROTEIN,URINE 1+ (NEGATIVE); UGLUCOSE NEGATIVE (NEGATIVE); UROBILINOGEN,URINE 0.2 EU/dL (0.2 - 1)
[2024-02-09 08:13] LABS: APPEARANCE,URINE SLIGHTLY HAZY (CLEAR)
[2024-02-09 08:15] LABS: ANION GAP 14.3 (8-16); CALCIUM 9.9 mg/dL (8.5-10.1); CARBON DIOXIDE 28.1 mmol/L (21-32); CREATININE 1.1 mg/dL (0.6-1.3); POTASSIUM 4.4 mmol/L (3.5-5.1)
[2024-02-09 08:19] LABS: ALBUMIN 3.8 g/dL (3.4-5.0); BACTERIA,URINE 2+ /HPF (None Seen); BILIRUBIN,DIRECT 0.1 mg/dL (0.0-0.3); MUCUS,URINE None Seen /LPF (None Seen); RBC,URINE 0-5 /HPF (0-5); SQUAMOUS EPITHELIAL CELL,UR 4-10 (MOD) /LPF (0-3 (FEW)); TOTAL BILIRUBIN 0.4 mg/dL (0.0-1.0); TOTAL PROTEIN, SERUM 7.9 g/dL (6.4-8.2); WBC,URINE 0-5 /HPF (0-5)
[2024-02-09] MEDS ORDERED: cefTRIAXone 1,000 MG VIAL ONE (08:50)
[2024-02-09 09:41] VITALS: BP 154/62; PULSE 88; RESP 13; TEMP 98.3; O2SAT 99
[2024-02-09] MEDS ORDERED: NYST100022 PO (09:42)
[2024-02-09] MEDS ORDERED: CEPH-588 PO (09:42)
== END 2024-02-09 09:50 | disposition home or self-care (01) ==
LOC: MED 06:01
DX: N39.0 Urinary tract infection, site not specified (principal); B37.0 Candidal stomatitis; E11.9 Type 2 diabetes mellitus without complications; I10 Essential (primary) hypertension; Z79.899 Other long term (current) drug therapy; Z79.82 Long term (current) use of aspirin; Z79.4 Long term (current) use of insulin; Z88.6 Allergy status to analgesic agent; Z88.1 Allergy status to other antibiotic agents
CPT/HCPCS: 36415; 80048; 80076; 81001; 82948; 83690; 85025; 87086; 87186; 96361; 96365; 96375; 99285; J0696; J2405; J7030